=== PATIENT | male | born 1995 | race Caucasian/White ===

== ENCOUNTER 2018-02-02 13:17 | Emergency (ER) | payer OTHER ==
[~2018-02-02] VITALS: Ht 182.9 cm; Wt 86.2 kg
[2018-02-02] MEDS ORDERED: OXYC5 (13:27)
[2018-02-02] MEDS ORDERED: CEPH500 (13:27)
[2018-02-02] MEDS ORDERED: Wheelchair1 EACH MC (15:25)
[2018-02-02] MEDS ORDERED: Naprosyn500 MG PO (15:26)
[2018-02-02] MEDS ORDERED: Percocet 5-3251 EACH PO (15:26)
== END 2018-02-02 15:55 | disposition home or self-care (01) ==
LOC: ER 13:17
DX: S81.011D Laceration without foreign body, right knee, subsequent encounter (principal); Z79.891 Long term (current) use of opiate analgesic
CPT/HCPCS: 36415; 73562-RT; 96374; 96375; 99283-25; J1170; J1885; J3010

== ENCOUNTER 2018-02-24 13:53 | Day surgery (SDC) | payer OTHER ==
[~2018-02-24 13:53] MED LIST: CEPH500; Cipro500 MG PO; NAPR550 PO; Naprosyn500 MG PO; Norco 5-325 Ta1 EACH PO; OXYC5; Percocet 5-3251 EACH PO; Vibramycin100 MG PO; Wheelchair1 EACH MC
== END 2018-02-24 15:45 | disposition home or self-care (01) ==
LOC: WOUND 13:53
DX: S81.001A Unspecified open wound, right knee, initial encounter (principal); S91.301A Unspecified open wound, right foot, initial encounter; S01.80XA Unspecified open wound of other part of head, initial encounter; V29.9XXA Motorcycle rider (driver) (passenger) injured in unspecified traffic accident, initial encounter
CPT/HCPCS: G0463

== ENCOUNTER 2018-11-20 18:03 | Emergency (ER) | payer SELFPAY ==
[~2018-11-20] VITALS: Ht 182.9 cm; Wt 90.7 kg
[2018-11-20] MEDS ORDERED: PENVK500 PO (19:43)
== END 2018-11-20 19:57 | disposition home or self-care (01) ==
LOC: ER 18:03
DX: K04.7 Periapical abscess without sinus (principal)
CPT/HCPCS: 99282